=== PATIENT | male | born 1955 | race Hispanic/Latino ===

== ENCOUNTER 2021-12-13 11:16 | Outpatient (CLI) | payer BC | END 2021-12-13 11:17 | disposition home or self-care (01) | LOC: LABBT 11:16 | DX: R07.81 Pleurodynia (principal); Z20.822 Contact with and (suspected) exposure to COVID-19 | CPT/HCPCS: U0003; U0005 ==

== ENCOUNTER 2021-12-18 09:41 | Day surgery (SDC) | payer BC ==
[2021-12-13 14:51] VITALS: BMI 38.0
[~2021-12-18 09:41] MED LIST: Gadobenate Dimeglumine 529 MG/1 ML (20ML VIAL) ONE
[2021-12-18] MEDS ORDERED: fentaNYL Citrate/PF 100 MCG/2 ML SYRINGE ONE (10:41)
[2021-12-18] MEDS ORDERED: Midazolam HCl 2 mg/2 ml Vial ONE (10:41)
[2021-12-18] MEDS ORDERED: hydrALAZINE 20 MG/ML VIAL ONE ×3 (12:59→13:05)
== END 2021-12-18 14:40 | disposition home or self-care (01) ==
LOC: SDC/OP 09:41
PROVIDERS: ATTEND Family Medicine Sports Medicine
DX: M90.512 Osteonecrosis in diseases classified elsewhere, left shoulder (principal); E66.9 Obesity, unspecified; Z68.38 Body mass index [BMI] 38.0-38.9, adult; Z79.899 Other long term (current) drug therapy; Z87.891 Personal history of nicotine dependence
CPT/HCPCS: A9577; J0360; J2250

== ENCOUNTER 2021-12-31 23:25 | Inpatient (IN) | payer BC, MEDICARE ==
[2022-01-01 00:32] LABS: #Basophils 0.1 thou/uL (0.0-0.2); #Eosinphils 0.2 thou/uL (0.0-0.7); #Lymphocytes 0.7 thou/uL (1.20-3.40); #Monocytes 0.7 thou/uL (0.11-0.59); #Neutrophils 7.2 thou/uL (1.40-6.50); %Basophils 0.6 % (0.0-1.0); %Eosinophils 1.9 % (0.0-10.0); %Monocytes 8.1 % (0.0-10.0); %Neutrophils 81.5 % (42.0-75.0); Hemoglobin 11.1 g/dL (14.0-18.0); Mean Corpuscular HGB CONC 36.1 g/dL (32.0-36.0); Mean Corpuscular Volume 91.6 fL (78.0-98.0); Mean Platelet Volume 9.1 fL (7.4-10.4); Platelet Count 190 thou/uL (130-400); RBC Distribution Width 12.8 % (11.5-14.5); Red Blood Cell (RBC) Count 3.35 mill/uL (4.70-6.10); White Blood Cell (WBC) Count 8.8 thou/uL (4.8-10.8)
[2022-01-01 00:48] LABS: ALT (SGPT) 23 U/L (8-55); AST (SGOT) 16 U/L (5-34); Albumin 3.4 g/dL (3.4-4.8); Alkaline Phosphatase 188 U/L (40-110); Anion Gap 22 mmol/L (10-20); Calc. Creatinine Clearance 0 mL/min (70-130); Carbon Dioxide 28 mmol/L (23-31); Chloride 94 mmol/L (98-107); Estimated GFR 6; Globulin 3.6 g/dL (2.4-3.5); Glucose 126 mg/dL (80-115); Lipase 83 U/L (8-78); Sodium 141 mmol/L (136-145)
[2022-01-01 01:00] LABS: BUN (Urea Nitrogen) 160 mg/dL (8.4-25.7)
[2022-01-01 01:04] LABS: Calcium 15.1 mg/dL (7.8-10.44)
[2022-01-01] MEDS ORDERED: Ondansetron PF 4 MG/2 ML Vial ONE (01:21)
[2022-01-01] MEDS ORDERED: cefTRIAXone\\ROCEPHIN 1 GM VIAL ONE (01:21)
[2022-01-01 01:22] LABS: CKMB 1.8 ng/mL (0-6.6)
[2022-01-01] MEDS ORDERED: Midazolam HCl 2 mg/2 ml Vial ONE ×2 (01:28→02:15)
[2022-01-01] MEDS ORDERED: Calcitonin,Synthetic 200 UNITS/ML MDV SC SCH (01:30)
[2022-01-01] MEDS ORDERED: Lidocaine 1% w/Epinephrine 1:100K 20 ML VIAL ONE (01:30)
[2022-01-01] MEDS ORDERED: Heparin 25,000 units/D5W 0 ML ONE (01:52)
[2022-01-01] MEDS ORDERED: Heparin 10,000 UNITS/ 10 ML VIAL ONE (01:52)
[2022-01-01] MEDS ORDERED: Norepinephrine 8 MG/0.9% NS 250 ML ONE (01:52)
[2022-01-01] MEDS ORDERED: DOPamine 400 MG/D5W 250 ML 250 ML ONE ×2 (04:22→10:03)
[2022-01-01 05:41] LABS: Troponin I 0.341 ng/mL (< 0.028)
[2022-01-01] MEDS ORDERED: Electrolyte Replacement Protocol 1 EACH FS SCH (05:45)
[2022-01-01] MEDS ORDERED: Acetaminophen 650 MG Suppository PR PRN (05:52)
[2022-01-01] MEDS ORDERED: Ondansetron PF 4 MG/2 ML Vial IVP PRN (05:52)
[2022-01-01] MEDS ORDERED: Ondansetron ODT 4 MG TAB PO PRN (05:52)
[2022-01-01] MEDS ORDERED: Acetaminophen 325 MG TAB PO PRN (05:52)
[2022-01-01 06:55] LABS: #Eosinphils 0.2 thou/uL (0.0-0.7); #Lymphocytes 0.9 thou/uL (1.20-3.40); %Basophils 0.2 % (0.0-1.0); %Eosinophils 1.4 % (0.0-10.0); %Lymphocytes 7.4 % (21.0-51.0); %Monocytes 8.5 % (0.0-10.0); %Neutrophils 82.5 % (42.0-75.0); Hemoglobin 10.4 g/dL (14.0-18.0); Mean Corpuscular HGB CONC 34.3 g/dL (32.0-36.0); Mean Corpuscular Hemoglobin 31.5 pg (27.0-31.0); Mean Platelet Volume 9.6 fL (7.4-10.4); Platelet Count 243 thou/uL (130-400); RBC Distribution Width 12.7 % (11.5-14.5); Red Blood Cell (RBC) Count 3.31 mill/uL (4.70-6.10); White Blood Cell (WBC) Count 12.1 thou/uL (4.8-10.8)
[2022-01-01 07:10] LABS: Anion Gap 23 mmol/L (10-20); Calc. Creatinine Clearance 0 mL/min (70-130); Carbon Dioxide 23 mmol/L (23-31); Chloride 100 mmol/L (98-107); Estimated GFR 7; Glucose 141 mg/dL (80-115); Potassium 3.2 mmol/L (3.5-5.1); Sodium 143 mmol/L (136-145)
[2022-01-01 07:21] LABS: BUN (Urea Nitrogen) 150 mg/dL (8.4-25.7)
[2022-01-01 07:29] LABS: Calcium 13.8 mg/dL (7.8-10.44)
[2022-01-01 07:42] LABS: Bilirubin Negative (Negative); Blood, Urine Small (Negative); Glucose, Urine (Dipstick) Negative (Negative); Ketone, Urine Negative (Negative); Leukocyte Small (Negative); Nitrite Negative (Negative); Protein, Urine (Dipstick) 30 mg/dL (Neg-Trace); Urobilinogen 0.2 mg/dL (Less than 2); pH, Urine 5.5 (5.0-9.0)
[2022-01-01 07:44] LABS: Clarity Slightly Cloudy (Clear)
[2022-01-01 07:58] LABS: RBC/HPF 0-3 HPF (0-3); Squamous Epithelial 0-3 HPF (0-3)
[2022-01-01 07:59] LABS: Bacteria/HPF 1+ HPF (None Seen); Renal Epithelial 0-3 HPF (None Seen)
[2022-01-01] MEDS ORDERED: Piperacillin/Tazobactam 3.375 GM in Sodium Chloride 0.9% 100 ML IVPB SCH (08:00)
[2022-01-01 08:06] LABS: Troponin I 0.316 ng/mL (< 0.028)
[2022-01-01] MEDS ORDERED: HYDROcodone/Acetaminophen 10/325 mg Tablet PO PRN (08:45)
[2022-01-01 09:17] LABS: Magnesium 3.7 mg/dL (1.6-2.6)
[2022-01-01] MEDS ORDERED: ZOLEDRONIC ACID IVPB SCH (10:00)
[2022-01-01] MEDS ORDERED: SODIUM CHLORIDE 0.9% IVPB SCH (10:00)
[2022-01-01 10:54] VITALS: BMI 34.8
[2022-01-01] MEDS: Sodium Chloride 0.9% 1,000 ML IV SCH ×4 (11:09→17:56)
[2022-01-01] MEDS: Potassium Chloride 20 MEQ in Premix Bag 1 BAG IVPB SCH ×3 (11:09→16:21)
[2022-01-01] MEDS: Piperacillin/Tazobactam 3.375 GM in Sodium Chloride 0.9% 100 ML IVPB SCH (11:10)
[2022-01-01] MEDS: Calcitonin,Synthetic 200 UNITS/ML MDV SC SCH ×2 (11:11→17:53)
[2022-01-01] MEDS: Heparin 5,000 UNITS/ML VIAL SC SCH ×3 (11:11→21:16)
[2022-01-01 15:09] LABS: Bilirubin Negative (Negative); Blood, Urine 1+ (Negative); Clarity Clear (Clear); Glucose, Urine (Dipstick) Normal (Negative); Ketone, Urine Negative (Negative); Leukocyte 75 Leu/uL (Negative); Nitrite Negative (Negative); Protein, Urine (Dipstick) 30 mg/dL (Neg-Trace); Specific Gravity, Urine 1.012 (1.002-1.036); Urobilinogen Normal mg/dL (Less than 2); pH, Urine 5.5 (5.0-9.0)
[2022-01-01 15:14] LABS: Albumin 3.2 g/dL (3.4-4.8); Anion Gap 20 mmol/L (10-20); Calc. Creatinine Clearance 15 mL/min (70-130); Carbon Dioxide 26 mmol/L (23-31); Chloride 101 mmol/L (98-107); Estimated GFR 7; Glucose 144 mg/dL (80-115); Phosphorus 6.8 mg/dL (2.3-4.7); Potassium 3.4 mmol/L (3.5-5.1); Sodium 144 mmol/L (136-145)
[2022-01-01 15:18] LABS: Calcium 13.6 mg/dL (7.8-10.44)
[2022-01-01 15:25] LABS: Bacteria/HPF 1+ HPF (None Seen); RBC/HPF 0-3 HPF (0-3); Squamous Epithelial 0-3 HPF (0-3); Urine Culture Reflex Yes Yes; WBC/HPF 0-3 HPF (0-3)
[2022-01-01 15:26] LABS: BUN (Urea Nitrogen) 147 mg/dL (8.4-25.7)
[2022-01-01 15:30] LABS: Creatinine, Urine 68.94 mg/dL (63-166)
[2022-01-01] MEDS ORDERED: Potassium Chloride 20 MEQ in Premix Bag 1 BAG IVPB SCH (16:00)
[2022-01-01] MEDS: DOPamine 400 MG/D5W 250 ML 250 ML IVPB SCH ×2 (16:07→22:54)
[2022-01-02] MEDS: Piperacillin/Tazobactam 3.375 GM in Sodium Chloride 0.9% 100 ML IVPB SCH ×2 (00:36→11:36)
[2022-01-02] MEDS: Sodium Chloride 0.9% 1,000 ML IV SCH ×5 (00:36→14:42)
[2022-01-02 05:22] LABS: #Lymphocytes 0.5 thou/uL (1.20-3.40); #Monocytes 0.6 thou/uL (0.11-0.59); #Neutrophils 6.1 thou/uL (1.40-6.50); %Basophils 0.2 % (0.0-1.0); %Eosinophils 0.6 % (0.0-10.0); %Lymphocytes 6.4 % (21.0-51.0); %Monocytes 7.7 % (0.0-10.0); %Neutrophils 85.1 % (42.0-75.0); Hemoglobin 9.1 g/dL (14.0-18.0); Mean Corpuscular HGB CONC 32.8 g/dL (32.0-36.0); Mean Corpuscular Hemoglobin 30.7 pg (27.0-31.0); Mean Corpuscular Volume 93.5 fL (78.0-98.0); Mean Platelet Volume 8.6 fL (7.4-10.4); Platelet Count 186 thou/uL (130-400); Red Blood Cell (RBC) Count 2.97 mill/uL (4.70-6.10); White Blood Cell (WBC) Count 7.2 thou/uL (4.8-10.8)
[2022-01-02 05:43] LABS: Anion Gap 18 mmol/L (10-20); Calc. Creatinine Clearance 17 mL/min (70-130); Carbon Dioxide 23 mmol/L (23-31); Chloride 109 mmol/L (98-107); Estimated GFR 8; Glucose 143 mg/dL (80-115); Magnesium 3.2 mg/dL (1.6-2.6); Potassium 3.5 mmol/L (3.5-5.1); Sodium 146 mmol/L (136-145)
[2022-01-02 05:54] LABS: BUN (Urea Nitrogen) 135 mg/dL (8.4-25.7)
[2022-01-02] MEDS: DOPamine 400 MG/D5W 250 ML 250 ML IVPB SCH ×2 (06:24→14:42)
[2022-01-02] MEDS: Heparin 5,000 UNITS/ML VIAL SC SCH ×2 (08:15→14:43)
[2022-01-02] MEDS ORDERED: Sodium Chloride 0.45% 1,000 ML IV SCH (10:00)
[2022-01-02] MEDS ORDERED: Metoprolol Tartrate 5 MG/5 ML VIAL IVP SCH (10:30)
[2022-01-02] MEDS ORDERED: Ondansetron PF 4 MG/2 ML Vial IVP PRN (10:49)
[2022-01-02] MEDS: Potassium Chloride 20 MEQ in Premix Bag 1 BAG IVPB SCH ×2 (11:36→15:59)
[2022-01-02 11:37] LABS: % Free PSA 58.7 % (.); Total PSA 3.1 ng/mL (0.0-4.0)
[2022-01-02] MEDS ORDERED: Hydrocortisone Sod Succ/PF 100 mg/2 ml Vial IVP SCH (12:00)
[2022-01-02 13:22] VITALS: BP 104/51
[2022-01-02 14:37] LABS: Kappa Lambda Light Chain Ratio 1.58 (0.26-1.65); Kappa Light Chains 110.3 mg/L (3.3-19.4); Lambda Light Chain 69.7 mg/L (5.7-26.3)
[2022-01-02 15:11] VITALS: TEMP 98.4
[2022-01-02] MEDS ORDERED: DOPamine 400 MG/D5W 250 ML 250 ML IVPB SCH (17:30)
[2022-01-03] MEDS ORDERED: Fludrocortisone Acetate 0.1 MG TAB PO SCH (09:00)
[2022-01-03 14:38] LABS: A/G Ratio 0.8 (0.7-1.7); Albumin 2.8 g/dL (2.9-4.4); Alpha 1 0.4 g/dL (0.0-0.4); Alpha 2 1.1 g/dL (0.4-1.0); Beta 1.1 g/dL (0.7-1.3); Globulin, Total 3.6 g/dL (2.2-3.9); M-Spike Not Observed g/dL (Not Observed)
== END 2022-01-02 18:30 | disposition hospice, home (50) | DRG 542 ==
LOC: ERS 23:25 → IMCU/EMU 01-01 04:01
PROVIDERS: ADMIT Hospitalist; ATTEND Hospitalist
PROC: 3E033XZ Introduction of Vasopressor into Peripheral Vein, Percutaneous Approach (ICD-10-PCS; principal; 2022-01-01)
DX: C79.51 Secondary malignant neoplasm of bone (principal); Z20.822 Contact with and (suspected) exposure to COVID-19; Z66 Do not resuscitate; Z51.5 Encounter for palliative care; G93.41 Metabolic encephalopathy; I21.A1 Myocardial infarction type 2; E87.0 Hyperosmolality and hypernatremia; N17.9 Acute kidney failure, unspecified; E83.52 Hypercalcemia; C80.1 Malignant (primary) neoplasm, unspecified; G89.29 Other chronic pain; I10 Essential (primary) hypertension; E86.9 Volume depletion, unspecified; E87.6 Hypokalemia; D63.8 Anemia in other chronic diseases classified elsewhere; T46.4X5A Adverse effect of angiotensin-converting-enzyme inhibitors, initial encounter; E83.41 Hypermagnesemia; I48.0 Paroxysmal atrial fibrillation; I95.89 Other hypotension; E66.9 Obesity, unspecified; Z68.34 Body mass index [BMI] 34.0-34.9, adult; Z79.899 Other long term (current) drug therapy
CPT/HCPCS: 36415; 70450; 71045; 72170; 74176; 80048; 80053; 81003; 81015; 82306; 82550; 82553; 82570; 83605; 83690; 83735; 83880; 83883; 83970; 84153; 84154; 84155; 84156; 84165; 84166; 84300; 84484; 85025; 85379; 87040; 87086; 93005; 93010; J0630; J0696; J1265; J1642; J1644; J1720; J2250; J2405; J2543; J3480; J3489; J3490; J7050; U0003; U0005